=== PATIENT | female | born 1965 | race Hispanic/Latino ===

== ENCOUNTER 2024-11-21 07:29 | Outpatient (CLI) | payer BC | END 2024-11-21 07:30 | disposition home or self-care (01) | LOC: CSHULT 07:29 | PROVIDERS: ATTEND Family Medicine Sports Medicine | DX: R79.89 Other specified abnormal findings of blood chemistry (principal); K80.20 Calculus of gallbladder without cholecystitis without obstruction | CPT/HCPCS: 76700 ==